=== PATIENT | male | born 1985 ===

== ENCOUNTER 2018-04-16 15:27 | Emergency (ER) | payer OTHER ==
--- NOTE | 2018-04-16 16:23 | ED PDOC ---
Arrival/HPI - General Chief Complaint: Trauma Time Seen by Provider: 04/16/18 16:18 Historian: Patient, Family - History of Present Illness Narrative History of Present Illness (Text): 04/16/18 16:23 A 33 year old male with no significant past medical history presents to the emergency department status post fall yesterday at 4 am. [place] and lost consciousness. Patient reports he was drinking that night and does not remember exactly what happened. Patient reports he went to an urgent care center earlier today who suggested he o to emergency room for a head CT. Patient denies any fever, chills, chest pain, shortness of breath, nausea, vomiting, diarrhea, urinary symptoms, back pain, neck pain, headache, or any other complaints. Time/Duration: 24 hours (yesterday) Symptom Course: Unchanged Activities at Onset: Light Context: Home Past Medical History - Provider Review Nursing Documentation Reviewed: Yes - Psychiatric Hx Psychophysiologic Disorder: No Hx Substance Use: No Family/Social History - Physician Review Nursing Documentation Reviewed: Yes Family/Social History: Unknown Family HX Smoking Status: Current Some Days Smoker Hx Alcohol Use: Yes Frequency of alcohol use: Socially Hx Substance Use: No Allergies/Home Meds Allergies/Adverse Reactions: Allergies No Known Allergies Allergy (Verified 04/16/18 15:55) Home Medications: Home Meds Medication Instructions Recorded Confirmed No Known Home Med 04/16/18 04/16/18 Review of Systems - Physician Review All systems were reviewed & negative as marked: Yes - Review of Systems Constitutional: absent: Fevers, Night Sweats Respiratory: absent: SOB Cardiovascular: absent: Chest Pain Gastrointestinal: absent: Diarrhea, Nausea, Vomiting Genitourinary Male: absent: Urinary Output Changes Musculoskeletal: absent: Back Pain, Neck Pain Skin: Other (brusing around left eye ). absent: Normal, Rash, Pruritis, Skin Lesions, Laceration, Abscess, Ulcer, Cellulitis Neurological: Dizziness. absent: Headache, Focal Weakness, Gait Changes, Speech Changes, Facial Droop, Disequilibrium, Seizure Physical Exam Vital Signs Reviewed: Yes Vital Signs Temp Pulse Resp BP Pulse Ox 04/16/18 17:58 98.7 F 75 17 118/70 100 04/16/18 15:56 98.8 F 76 16 120/74 98 Temperature: Afebrile Blood Pressure: Normal Pulse: Regular Respiratory Rate: Normal Appearance: Positive for: Well-Appearing, Non-Toxic, Comfortable Pain Distress: None Mental Status: Positive for: Alert and Oriented X 3 - Systems Exam Head: Present: Atraumatic, Normocephalic, Swelling (+swelling around left eye), Ecchymosis (+around left eye). No: Tenderness, Contusion, Abrasion, Laceration Pupils: Present: PERRL Extroacular Muscles: Present: EOMI Conjunctiva: Present: Other (+subconjunctival hemorrhage on lateral aspect of left eye). No: Normal, Injected, Icteric Mouth: Present: Moist Mucous Membranes Neck: Present: Normal Range of Motion Respiratory/Chest: Present: Clear to Auscultation, Good Air Exchange. No: Respiratory Distress, Accessory Muscle Use Cardiovascular: Present: Regular Rate and Rhythm, Normal S1, S2. No: Murmurs Abdomen: No: Tenderness, Distention, Peritoneal Signs Back: Present: Normal Inspection Upper Extremity: Present: Normal Inspection. No: Cyanosis, Edema Lower Extremity: Present: Normal Inspection. No: Edema Neurological: Present: GCS=15, CN II-XII Intact, Speech Normal Skin: Present: Warm, Dry, Normal Color. No: Rashes Psychiatric: Present: Alert, Oriented x 3, Normal Insight, Normal Concentration Medical Decision Making ED Course and Treatment: 04/16/18 16:36 Impression: A 33 year old male with no significant past medical history presents to the emergency department status post fall. Plan: -- Head CT without contrast -- CT Orbits/Facials without contrast -- Reassess and disposition Prior Visits: Notes and results from previous visits were reviewed. Progress Notes: 04/16/18 17:25 Dictator: Mo Pearce MD Procedure: CT Maxillofacial Bones without contrast Impression: No evidence of acute displaced maxillofacial skeletal fractures. Moderate left- sided facial soft tissue swelling. Dictator: Mo Pearce MD Procedure: CT Head without contrast Impression: No acute intracranial hemorrhage. Moderate left-sided facial soft tissue swelling which extends superiorly into the left periorbital supraorbital and frontotemporal region. - RAD Interpretation Radiology Orders: 04/16/18 16:18 HEAD W/O CONTRAST [CT] Stat ORBITS/ FACIALS W/O CONTRAST [CT] Stat - Scribe Statement The provider has reviewed the documentation as recorded by the Esha Mobley All medical record entries made by the Scribe were at my direction and personally dictated by me. I have reviewed the chart and agree that the record accurately reflects my personal performance of the history, physical exam, medical decision making, and the department course for this patient. I have also personally directed, reviewed, and agree with the discharge instructions and disposition. Disposition/Present on Arrival - Present on Arrival Any Indicators Present on Arrival: No History of DVT/PE: No History of Uncontrolled Diabetes: No Urinary Catheter: No History of Decub. Ulcer: No History Surgical Site Infection Following: None - Disposition Have Diagnosis and Disposition been Completed?: Yes Diagnosis: Head contusion Disposition: HOME/ ROUTINE Disposition Time: 17:15 Condition: GOOD Discharge Instructions (ExitCare): Concussion, Adult (DC) Additional Instructions: VIRI GARCIA, thank you for letting us take care of you today. The emergency medical care you received today was directed at your acute symptoms. If you were prescribed any medication, please fill it and take as directed. It may take several days for your symptoms to resolve. Return to the Emergency Department if your symptoms worsen, do not improve, or if you have any other problems. Please contact your doctor or call one of the physicians/clinics you have been referred to that are listed on the Patient Visit Information form that is included in your discharge packet. Bring any paperwork you were given at discharge with you along with any medications you are taking to your follow up visit. Our treatment cannot replace ongoing medical care by a primary care provider outside of the emergency department. Thank you for allowing the [facility] team to be part of your care today. Follow up with the clinic this week for re-evaluation and further management. Referrals: Rosemarie Crain MD [Medical Doctor] - Follow up with primary Forms: [facility] (Turkmen)
--- NOTE | 2018-04-16 17:09 | CT ---
Date of service: 04/16/2018 PROCEDURE: CT HEAD WITHOUT CONTRAST. HISTORY: s/p fall - r/o ICH and fx COMPARISON: Correlation made with concurrent CT scan of the maxillofacial skeleton/ orbits. TECHNIQUE: Axial computed tomography images were obtained through the head/brain without intravenous contrast. Radiation dose: Total exam DLP = 846.94 mGy-cm. This CT exam was performed using one or more of the following dose reduction techniques: Automated exposure control, adjustment of the mA and/or kV according to patient size, and/or use of iterative reconstruction technique. FINDINGS: Note that study is somewhat limited by motion/ streak/beam hardening artifact which obscures a multiple on images in the skullbase region. HEMORRHAGE: No acute parenchymal, subarachnoid or extra-axial hemorrhage. BRAIN: No evidence of large acute infarct. No obvious parenchymal nor extra-axial mass or collection seen on this noncontrast study. Ventricular and sulcal size are within range of normal for this patient's stated age. VENTRICLES: No obstructive hydrocephalus. CALVARIUM: Calvarium intact however there is moderate left premaxillary, periorbital supraorbital and frontotemporal scalp swelling. PARANASAL SINUSES: Unremarkable as visualized. No significant inflammatory changes. MASTOID AIR CELLS: Unremarkable as visualized. No inflammatory changes. OTHER FINDINGS: None. IMPRESSION: No acute intracranial hemorrhage. Moderate left-sided facial soft tissue swelling which extends superiorly into the left periorbital supraorbital and frontotemporal region.
--- NOTE | 2018-04-16 17:15 | CT ---
Date of service: 04/16/2018 PROCEDURE: CT MAXILLOFACIAL BONES WITHOUT CONTRAST HISTORY: s/p fall - r/o fx COMPARISON: Comparison made with concurrent CT scan brain. TECHNIQUE: Contiguous axial CT images of the maxillofacial bones were obtained. Coronal and sagittal reformats were generated. Radiation dose: Total exam DLP = 754.80 mGy-cm. This CT exam was performed using one or more of the following dose reduction techniques: Automated exposure control, adjustment of the mA and/or kV according to patient size, and/or use of iterative reconstruction technique. FINDINGS: NASAL BONES: Unremarkable. Left middle turbinate finn bullosa. ORBITS: Aside from periorbital soft tissue swelling the orbital contents unremarkable. Globes intact and lenses appropriately located. There are no retrobulbar hemorrhages or collections. Optic nerves and extraocular musculature unremarkable. PARANASAL SINUSES/ MASTOIDS: No fluid levels seen to suggest acute hemorrhage or sinusitis. . Minimal mucosal thickening both maxillary antra. MAXILLA: There is moderate left-sided pre maxillary soft tissue swelling extends superiorly into the periorbital, supraorbital and left frontotemporal region. MANDIBLE/ TEMPOROMANDIBULAR JOINTS: Unremarkable. SKULL BASE: Unremarkable. TEMPORAL BONES: Middle ears and mastoid grossly unremarkable. OTHER FINDINGS: None. IMPRESSION: No evidence of acute displaced maxillofacial skeletal fractures. Moderate left-sided facial soft tissue swelling.
[2018-04-16 17:59] VITALS: BP 118/70; PULSE 75; RESP 17; TEMP 98.7; O2SAT 100
== END 2018-04-16 17:58 | disposition home or self-care (01) ==
LOC: ED 15:27
DX: S00.93XA Contusion of unspecified part of head, initial encounter (principal); W19.XXXA Unspecified fall, initial encounter; Y92.522 Railway station as the place of occurrence of the external cause